=== PATIENT | female | born 1970 | race Caucasian/White ===

== ENCOUNTER 2023-10-11 11:42 | Emergency (ER) | payer OTHER, SELFPAY ==
[2023-10-11 11:53] VITALS: BP 158/101; PULSE 79; RESP 16; TEMP 36.9; O2SAT 100
--- NOTE | 2023-10-11 12:00 | DI.CT_ITS ---
Exam(s) CT LUMBAR SPINE WO EXAM: CT LUMBAR SPINE WO CLINICAL HISTORY: Left side radiculopathy, back pain. TECHNIQUE: Imaging Protocol: Axial computed tomography images with coronal and sagittal reformatted images were created and reviewed COMPARISON: No exams were available for comparison FINDINGS: Bones: The last intervertebral disc space is designated the L5/S1 level for the numbering purpose of this examination. There are endplate osteophytes seen from L2-3 through L5-S1. There is a vacuum di sc at L3-L4 and L5-S1. Alignment is satisfactory. No fracture is seen. T12-L1: No disc herniations or bulges are present. No central spinal canal or neural foraminal steno sis. L1-2: No disc herniations or bulges are present. No central spinal canal or neural foraminal stenosi s. L2-3: At L2-L3 there is a 0.8 x 0.7 cm round density which appears to be connected to the disc at L2 -L3. (Series 3, image 29). This may represent an extruded disc. It also extends into the left neur al foramen causing left neural foraminal stenosis. It appears to cause left lateral recess stenosis which would compress the left L2 nerve root. There is a diffuse disc bulge at this level. No signif icant central spinal canal stenosis is seen. No significant right neural foraminal stenosis. L3-4: No disc herniations or bulges are present. No central spinal canal stenosis. There is mild ri ght neural foraminal narrowing. No significant left neural foraminal stenosis. L4-5: There is a mild diffuse disc bulge. No significant central spinal canal stenosis. Mild-to-mo derate left neural foraminal stenosis is present no significant right neural foraminal stenosis. L5-S1: No disc herniations or bulges are present. No significant central spinal canal stenosis. The re is mild bilateral neural foraminal stenosis. Soft Tissues: The visualized SI joints and sacrum are will maintained. The paraspinal soft tissues a re unremarkable. Note is made of a 3.5 cm left ovarian cyst. IMPRESSION: 1. At L2-L3, there is a left-sided disc herniation. It extruded posterior to the L2 vertebral body c ausing left lateral recess stenosis with presumed compression of the left L3 nerve root. There is ex tension into the left neural foramen at L2-L3 causing neural foraminal stenosis. 2. Multilevel degenerative changes in the lumbar spine resulting in multilevel neural foraminal steno sis as described above. 3. Nonemergent outpatient MRI may be considered for further evaluation. RADIATION DOSE DELIVERED: Total DLP Total DLP DATA REPOSITORY: All CT scans at this facility are submitted to the National Radiology Data Registry (NRDR) Dose Index Registry (DIR) with the [employer] ([employer]). RADIATION OPTIMIZATION: All CT scans at this facility use at least one of these dose optimization te chniques: automated exposure control; mA and/or kV adjustment per patient size (includes targeted exa ms where dose is matched to clinical indication); or iterative reconstruction.
--- NOTE | 2023-10-11 12:07 | W.ED.GENAD ---
Discharge Plan Disposition Patient Disposition: Home Condition: Stable Discharge Details Clinical Impression: Lumbar herniated disc, Lumbago with sciatica, left side Primary Care Provider: Ralf Mcmullen ED Provider: Prema Durán Home Meds and New Rx's Prescriptions: New tramadol 50 mg tablet 50 mg PO Q8H PRN (Reason: pain) Qty: 7 0RF Rx Instructions: take one tablet by mouth 3 times daily as needed for pain prednisone 20 mg tablet 60 mg PO DAILY 5 Days Qty: 15 0RF Continued ascorbic acid (vitamin C) [Vitamin C] 500 MG capsule, extended release 500 mg PO DAILY Vitamin D3 Complete 1 EACH tablet 1 ea PO DAILY albuterol sulfate 90 mcg/actuation HFA aerosol inhaler INHALATION No Action chromium picolinate 200 MCG tablet 200 mcg PO DAILY Magnesium (oxide/AA chelate) 300 MG capsule 300 mg PO DAILY flaxseed-omega3,6,9-fatty acid 1 EACH capsule 1 ea PO DAILY cyclobenzaprine 10 mg tablet 10 mg PO PRN Patient Comments: TAKE 1 TABLET BY MOUTH THREE TIMES DAILY NEEDED FOR MUSCLE SPASM MAY CAUSE SEDATION/ NO DRIVING OR OPERATING EQUIPMENT levomefolate calcium 7.5 mg tablet 7.5 mg PO DAILY Patient Comments: TAKE 1 TABLET BY MOUTH ONCE DAILY Discharge Instructions Instructions: Lumbar Disc Herniation (ED), Low Back Strain (ED) Additional Instructions: Please take the medications as directed. Follow-up with pain and spine/PCP for further evaluation and care. CT shows you have some left-sided disc herniation which is putting pressure on the nerves which is causing her pain. No heavy lifting until cleared by your physician, no bending at the waist. Do not drive or operate heavy machinery while taking the medication as this will make you drowsy. Alternate ice and heat. You may also use lidocaine patches which you can get [id number]. Follow up with primary care provider in 3-5 days. Return to ED sooner if any worsening or concerns. Please take Tylenol or Ibuprofen with food every 4-6 hours as needed for pain and swelling. Referrals: Nathan Florence DO [OSTEOPATHIC DOCTOR] - 1 week Ralf Mcmullen [Primary Care Provider] - 5 days HPI General Mode of arrival: wheelchair. Date/Time Provider Initiated Documentation: 10/11/23 11:58. Limitations to Documentation: no limitations. Information obtained by: patient, RN notes reviewed and old records reviewed. HPI Narrative: 53-year-old female with a past medical history of sciatica, obstructive sleep apnea, hypothyroidism hypercholesterol COPD hypertension presents to the ER with chief complaint lower back pain with radiation down her left leg. She reports that it got worse this morning. She has recently moved and done heavy lifting. No falls. She did take a Flexeril tablet at 10:00 this morning and reports taking 6 tablets of ibuprofen last night. She denies any saddle anesthesia or loss of bowel or bladder control. She reports pain is worse upon standing. Related Data Home Medications Medication Instructions Recorded Confirmed Magnesium (oxide/AA chelate) 300 300 mg PO DAILY 10/11/15 10/11/23 mg capsule (magnesium oxide-Mg AA chelate) Vitamin C 500 mg capsule,extended 500 mg PO DAILY 10/11/15 10/11/23 release (ascorbic acid (vitamin C)) Vitamin D3 Complete 18 mg iron-800 1 ea PO DAILY 10/11/15 10/11/23 mcg-150 mg tablet ([id number] [id number]#[id number]) chromium picolinate 200 mcg tablet 200 mcg PO DAILY 10/11/15 10/11/23 flaxseed oil-omega 3,6,9-fatty 1 ea PO DAILY 10/11/15 10/11/23 acids 1,300 mg-670 mg-155 mg capsule albuterol sulfate 90 mcg/actuation inhalation 10/11/23 aerosol inhaler cyclobenzaprine 10 mg tablet 10 mg PO PRN 10/11/23 10/11/23 levomefolate calcium 7.5 mg tablet 7.5 mg PO DAILY 10/11/23 10/11/23 prednisone 20 mg tablet 60 mg (3 x 20 mg) PO DAILY 5 days 10/11/23 #15 tabs tramadol 50 mg tablet 50 mg PO Q8H PRN pain #7 tabs 10/11/23 Previous Rx's Medication Instructions Recorded prednisone 20 mg tablet 60 mg (3 x 20 mg) PO DAILY 5 days 10/11/23 #15 tabs tramadol 50 mg tablet 50 mg PO Q8H PRN pain #7 tabs 10/11/23 Allergies Allergy/AdvReac Type Severity Reaction Status Date / Time acetaminophen [From Percocet] Allergy Other (See Unverified 10/11/23 11:50 Comment) morphine Allergy Skin Rash Unverified 10/11/23 11:50 oxycodone HCl [From Percocet] Allergy Nausea Unverified 10/11/23 11:50 General Stated Complaint: Nk/Back Pain LUIS: 3 Review of Systems All systems reviewed & are unremarkable except as noted in HPI and below Musculoskeletal Musculoskeletal: Reports as per HPI, Reports back pain and Reports radiating pain into limb Exam Narrative Exam Narrative: Constitutional: Alert and oriented x3. Appears stated age. Normal body habitus. Head: Normocephalic, no trauma. Eyes: Pupils PERRL, Red reflex noted, EOM's intact. Eyelids symmetrical without lesions, discharge, or swelling. Resp: Lungs clear to auscultation bilaterally, no wheezes, rales, or rhonchi. Abdomen: Soft, non-distended, Normoactive bowel sounds all 4 quads. Musculoskeletal: Unable to assess gait, Skin: No suspicious rashes or lesions. Capillary refill less than 2 sec. Neurologic: Cranial nerves II-XII intact. Alert and oriented x 3. Motor: No deficits noted. Sensory: Intact bilaterally all 4 extremities. Hematologic/Lymphatic: No ecchymosis, no lymphadenopathy. Course Vital Signs Vital signs: Vital Signs Temperature 36.9 C 10/11/23 11:53 Pulse 79 10/11/23 11:53 Respiratory Rate 16 10/11/23 11:53 Blood Pressure 158/101 H 10/11/23 11:53 Pulse Oximetry 100 10/11/23 11:53 Temperature 36.9 C 10/11/23 11:53 Temperature Source Temporal Artery Scan 10/11/23 11:53 Pulse 79 10/11/23 11:53 Respiratory Rate 16 10/11/23 11:53 Blood Pressure 158/101 H 10/11/23 11:53 Blood Pressure Position Sitting 10/11/23 11:53 Pulse Oximetry 100 10/11/23 11:53 Oxygen Delivery Method Room Air 10/11/23 11:53 Oxygen Flow Rate 0 10/11/23 11:53 Pain Level 10 10/11/23 11:53 Medical Decision Making 53-year-old female with a past medical history of sciatica, obstructive sleep apnea, hypothyroidism hypercholesterol COPD hypertension presents to the ER with chief complaint lower back pain with radiation down her left leg. She reports that it got worse this morning. She has recently moved and done heavy lifting. No falls. She did take a Flexeril tablet at 10:00 this morning and reports taking 6 tablets of ibuprofen last night. She denies any saddle anesthesia or loss of bowel or bladder control. She reports pain is worse upon standing. CT lumbar spine ordered, lidocaine patch Toradol IM and prednisone. CT shows left sided disc herniation at the levels of L2-L3, with left sided neural stenosis. Will give prednisone and consider tramadol with referrral to pain and spine and PCP. On patient reevaluation she feels much better. Given prednisone and tramadol that she has had before. Patient is driving so tramadol not given here in the department but a prescription sent to the pharmacy that she requested. Discussed strict return instructions including loss of bowel or bladder control, saddle anesthesia and I discussed follow-up with referral to pain clinic she verbalized understanding is in agreement with the plan. This text was generated using [employer] system, please disregard any oddities of phrase or misspellings. Imaging Data Radiologic Study: Imaging: CT Scan Radiologist's impression: EXAM: CT LUMBAR SPINE WO CLINICAL HISTORY: Left side radiculopathy, back pain. TECHNIQUE: Imaging Protocol: Axial computed tomography images with coronal and sagittal reformatted images were created and reviewed COMPARISON: No exams were available for comparison FINDINGS: Bones: The last intervertebral disc space is designated the L5/S1 level for the numbering purpose of this examination. There are endplate osteophytes seen from L2-3 through L5-S1. There is a vacuum disc at L3-L4 and L5-S1. Alignment is satisfactory. No fracture is seen. T12-L1: No disc herniations or bulges are present. No central spinal canal or neural foraminal stenosis. L1-2: No disc herniations or bulges are present. No central spinal canal or neural foraminal stenosis. L2-3: At L2-L3 there is a 0.8 x 0.7 cm round density which appears to be connected to the disc at L2-L3. (Series 3, image 29). This may represent an extruded disc. It also extends into the left neural foramen causing left neural foraminal stenosis. It appears to cause left lateral recess stenosis which would compress the left L2 nerve root. There is a diffuse disc bulge at this level. No significant central spinal canal stenosis is seen. No significant right neural foraminal stenosis. L3-4: No disc herniations or bulges are present. No central spinal canal stenosis. There is mild right neural foraminal narrowing. No significant left neural foraminal stenosis. L4-5: There is a mild diffuse disc bulge. No significant central spinal canal stenosis. [id number] left neural foraminal stenosis is present no significant right neural foraminal stenosis. L5-S1: No disc herniations or bulges are present. No significant central spinal canal stenosis. There is mild bilateral neural foraminal stenosis. Soft Tissues: The visualized SI joints and sacrum are will maintained. The paraspinal soft tissues are unremarkable. Note is made of a 3.5 cm left ovarian cyst. IMPRESSION: 1. At L2-L3, there is a left-sided disc herniation. It extruded posterior to the L2 vertebral body causing left lateral recess stenosis with presumed compression of the left L3 nerve root. There is extension into the left neural foramen at L2-L3 causing neural foraminal stenosis. 2. Multilevel degenerative changes in the lumbar spine resulting in multilevel neural foraminal stenosis as described above. 3. Nonemergent outpatient MRI may be considered for further evaluation. Quality:SDOH Health Related Social Needs: No Data to Display PFSH All Active Problems (Updated 10/11/23 @ 14:30 by Prema Durán NP) Lumbago with sciatica, left side (Acute) Lumbar herniated disc (Acute) Medical History Irritable bowel syndrome BK on CPAP Hypothyroidism Hypercholesterolemia Chronic fatigue syndrome COPD (chronic obstructive pulmonary disease) Essential hypertension Surgical History Fracture, Closed Treatment Social History Smoking risk assessment performed?: No
[2023-10-11] MEDS: Ketorolac 60 MG/2 ML VIAL IM (12:28)
[2023-10-11 12:32] LABS: Bilirubin Negative (Negative); Blood Negative (Negative); Clarity Clear (Clear); Glucose Negative (Negative); Ketones Negative (Negative); Leukocyte Esterase Negative (Negative); Nitrite Negative (Negative); Specific Gravity 1.015 (1.005-1.025); Urobilinogen 0.2 mg/dL (Up to 0.2)
[2023-10-11 14:33] VITALS: BP 134/84; PULSE 59; RESP 18; O2SAT 98
[2023-10-11] MEDS: predniSONE 20 MG TAB 60 MG PO (14:41)
== END 2023-10-11 14:42 | disposition home or self-care (01) ==
LOC: ER 15:04
PROVIDERS: Emergency Provider Registered Nurse Emergency; PCP Naturopath
DX: M79.605 Pain in left leg (principal); M54.42 Lumbago with sciatica, left side; M51.26 Other intervertebral disc displacement, lumbar region
CPT/HCPCS: 96372; 99284; 72131; 81003; 99283; J1885; J7512

== ENCOUNTER 2024-08-25 11:36 | Outpatient (CLI) | payer BC, SELFPAY ==
[2024-08-26 10:06] LABS: RNP Ab, IgG <6.0 CU (<20.0); Ro60 Ab, IgG <7.0 CU (<20.0); SS-A/Ro, IgG 12.5 CU (<20.0); SS-B (La) Ab, IgG <3.3 CU (<20.0); Sm (Smith) Ab, IgG <8.0 CU (<20.0); dsDNA Ab, IgG <22.0 IU/mL (<27.0)
== END 2024-08-25 11:37 | disposition home or self-care (01) ==
PROVIDERS: PCP Naturopath; Visit Provider Naturopath
DX: R76.0 Raised antibody titer (principal)
CPT/HCPCS: 36415; 86225; 86235